=== PATIENT | male | born 1930 | race Caucasian/White ===

== ENCOUNTER 2017-11-11 23:25 | Emergency (ER) | payer OTHER ==
[2017-11-11 23:59] LABS: ADD MAN DIFF? NO
[2017-11-12] LABS: ABNORMAL IP MESSAGE 1; BASOPHIL # 0.1 10^3/ul (0.0-0.1); BASOPHILS % 0.6 % (0.0-2.0); EOSINOPHILS % 0.1 % (0.0-7.0); HEMATOCRIT 37.2 % (42.0-52.0); HEMOGLOBIN 11.7 g/dl (14.0-18.0); LYMPHOCYTES # 0.6 10^3/ul (0.8-2.9); LYMPHOCYTES % 3.7 % (15.0-51.0); MEAN CORPUSCULAR HEMOGLOBIN 29.2 pg (29.0-33.0); MEAN CORPUSCULAR HGB CONC 31.5 g/dl (32.0-37.0); MEAN CORPUSCULAR VOLUME 92.8 fl (82.0-101.0); MEAN PLATELET VOLUME 11.4 fl (7.4-10.4); MONOCYTE # 0.6 10^3/ul (0.3-0.9); MONOCYTES % 3.7 % (0.0-11.0); NEUTROPHIL # 14.4 10^3/ul (1.6-7.5); PLATELET COUNT 216 10^3/UL (140-415); POSITIVE DIFF @See below; RED BLOOD COUNT 4.01 10^6/ul (4.70-6.10); RED CELL DISTRIBUTION WIDTH 13.5 % (11.5-14.5)
[2017-11-12] LABS: WHITE BLOOD COUNT 15.8 10^3/ul (4.8-10.8)
[2017-11-12 00:10] LABS: ADD UMIC YES; UR AMORPHOUS CRYSTAL FEW /HPF (NONE SEEN); UR ASCORBIC ACID NEGATIVE (NEGATIVE); UR BACTERIA MANY /HPF (NONE SEEN); UR BILIRUBIN (Dip) NEGATIVE (NEGATIVE); UR BLOOD (Dip) 2+ mg/dL (NEGATIVE); UR CLARITY CLOUDY (CLEAR); UR COLOR AMBER (YELLOW); UR GLUCOSE (Dip) NEGATIVE (NEGATIVE); UR KETONES (Dip) NEGATIVE (NEGATIVE); UR LEUKOCYTE ESTERASE (Dip) 3+ Leu/ul (NEGATIVE); UR MUCUS FEW /HPF (NONE SEEN); UR NITRITE (Dip) POSITIVE (NEGATIVE); UR RBC 8 /HPF (0-5); UR SPECIFIC GRAVITY (Dip) 1.019 (1.003-1.030); UR SQUAMOUS EPITHELIAL CELL FEW /HPF (FEW); UR TOTAL PROTEIN (Dip) 1+ mg/dl (NEGATIVE); UR UROBILINOGEN (Dip) NEGATIVE (NEGATIVE); UR WBC 142 /HPF (0-5)
[2017-11-12 00:11] LABS: NEUTROPHILS % 91.1 % (39.0-77.0)
[2017-11-12 00:21] LABS: ANION GAP 16 (8-16); BLOOD UREA NITROGEN 52 mg/dl (7-20); CALCIUM 8.9 mg/dl (8.4-10.2); CARBON DIOXIDE 26 mmol/L (21-31); CHLORIDE 105 mmol/L (97-110); GLUCOSE 156 mg/dl (70-220); POTASSIUM 4.3 mmol/L (3.5-5.1); SODIUM 143 mmol/L (135-144)
[2017-11-12 00:28] LABS: PARTIAL THROMBOPLASTIN TIME 42.3 Sec (25.0-35.0)
[2017-11-12 00:31] LABS: INR 1.97; PROTIME 22.9 Sec (11.9-14.9); PT RATIO 1.8
[2017-11-12 00:32] LABS: TROPONIN-I 0.047 ng/ml (0.000-0.120)
[2017-11-12 00:32] LABS: LACTIC ACID 4.3 mmol/L (0.5-2.0)
[2017-11-12] MEDS: SODIUM CHLORIDE 0.9% 1L BAG IV* (01:30)
[2017-11-12] MEDS: CEFEPIME 2GM/50 ML (PMX) 50 ML IVPB (01:30)
[2017-11-12 02:49] LABS: LACTIC ACID 4.2 mmol/L (0.5-2.0)
== END 2017-11-12 03:54 | disposition short-term general hospital (02) ==
LOC: E/R 23:25
DX: A41.9 Sepsis, unspecified organism (principal); R40.2122 Coma scale, eyes open, to pain, at arrival to emergency department; R40.2242 Coma scale, best verbal response, confused conversation, at arrival to emergency department; R40.2352 Coma scale, best motor response, localizes pain, at arrival to emergency department; I10 Essential (primary) hypertension
CPT/HCPCS: 36415; 71045; 74018; 80048; 81001; 83605; 84484; 85025; 85610; 85730; 87040; 87086; 93005; 96374; 99291-25